=== PATIENT | female | born 1955 | race African-American/Black ===

== ENCOUNTER 2016-12-26 13:49 | Inpatient (IN) | payer OTHER ==
[~2016-12-26] VITALS: Ht 160 cm; Wt 64.0 kg
[~2016-12-26 13:49] MED LIST: AMBIEN5 MG PO; ASPIR-LOW81 MG PO; CELEXA20 MG PO; CELEXA40 MG PO; CRESTOR20 MG PO; CRESTOR40 MG PO; CRESTOR5 MG PO; DAILY VALUE1 EACH PO; DESYREL100 MG PO; DIOVAN320 MG PO; FLEXERIL10 MG PO; FLORASTOR250 MG PO; FUROSEMIDE20 MG PO; HYDROCHLOROTHIA25 MG PO; HYDROCODON-ACE1 EAC7 PO; JANUMET 50/11 TABLET PO; LASIX20 MG PO; LEVO-T112 MCG PO; LEXAPRO10 MG PO; LOPRESSOR100 M1 PO; LOPRESSOR25 MG PO; LOSARTAN-HCTZ1 EAC1 PO; METOPROLOL SUCC50 MG PO; MOTRIN600 MG PO; NAPROSYN500 MG PO; NORVASC10 MG PO; ONE-A-DAY ESSE1 EAC1 PO; PERCOCET 5/31 TABLET PO; PROZAC10 MG PO; SYNTHROID100 MCG PO; SYNTHROID88 MCG PO; TRAMADOL HCL50 MG PO; TRAZODONE HCL50 MG PO; TYLENOL EXTRA500 MG PO; ULTRAM50 MG PO; VANCOCIN 250 M250 MG PO; VITAMIN B-12 PO; VITAMIN B122500 MCG PO; VITRON-C TABLE1 EACH PO
[2016-12-26 15:01] LABS: HEMATOCRIT 33.6 % (36.0-46.0); MCH 24.8 PG (29.0-34.0); MCHC 30.1 G/DL (30.0-36.0); MCV 82.4 FL (83-99); MEAN PLAT.VOLUME 9.6 uM^3 (9.5-12.4); PLATELET COUNT 203 K/uL (156-360); RBC DIS.WIDTH-CV 17.6 % (11.8-14.6); RBC DIS.WIDTH-SD 53.1 % (39-53); RED BLOOD COUNT 4.08 M/uL (3.80-5.20); WHITE BLOOD COUNT 5.6 K/uL (4.1-10.2)
[2016-12-26 15:11] LABS: CHLORIDE 105 mEq/L (99-109); POTASSIUM 4.7 mEq/L (3.7-5.4); SODIUM 136 mEq/L (136-147)
[2016-12-26 15:13] LABS: GLUCOSE 93 mg/dL (70-99)
[2016-12-26 15:14] LABS: ANION GAP 4 MEQ/L (2-14)
[2016-12-26 15:17] LABS: GFR ESTIMATE (CALCULATED) > 59 mL/min/
[2016-12-26 15:18] LABS: UREA NITROGEN (BUN) 15 mg/dL (9-23)
[2016-12-26 15:25] LABS: TROP-I INTERPRETATION NEGATIVE; TROPONIN-I 0.02 ng/mL (0.0-0.30)
[2016-12-26 16:58] LABS: TOTAL BILIRUBIN 0.5 mg/dL (0.0-1.0)
[2016-12-26 16:59] LABS: ALKALINE PHOSPHATASE 90 IU/L (3-129)
[2016-12-26 17:01] LABS: DIRECT BILIRUBIN 0.2 mg/dL (0.0-0.3)
[2016-12-26 17:02] LABS: LIPASE 39 U/L (1.0-51.0)
[2016-12-26 17:27] LABS: ADD MIUA? YES; BILIRUBIN NEGATIVE; BLOOD NEGATIVE; COLOR YELLOW ((YELLOW)); GLUCOSE (STRIP) NEGATIVE; KETONES NEGATIVE; LEUKOCYTES TRACE; NITRITE NEGATIVE; PROTEIN (STRIP) 100; SPECIFIC GRAVITY 1.011 (1.000-1.030); UROBILINOGEN 0.2 MG/DL (0.2-1.0)
[2016-12-26 17:40] LABS: BACTERIA RARE /HPF; EPITHELIAL CELLS RARE /HPF; MUCUS NONE SEEN /LPF; RED BLOOD CELLS 0-5 /HPF (0-5); WHITE BLOOD CELLS 0-5 /HPF (0-5)
[2016-12-26] MEDS ORDERED: METOPROLOL TART50 MG PO (17:44)
[2016-12-26] MEDS ORDERED: METOPROLOL TART25 MG PO (17:44)
[2016-12-26] MEDS ORDERED: LO-DOSE ASPIRIN81 M2 PO (17:45)
[2016-12-26] MEDS ORDERED: MAXITROL EYE O3.5 GM BOTH EYES (17:47)
[2016-12-26] MEDS ORDERED: HYDROXYCHLOROQ200 MG PO (17:47)
[2016-12-26] MEDS ORDERED: DAILY VALUE1 EACH PO (17:48)
[2016-12-26] MEDS ORDERED: GLIMEPIRIDE2 MG PO (17:48)
[2016-12-26] MEDS ORDERED: ARTIFICIAL TEAR15 M1 BOTH EYES (17:48)
[2016-12-26 18:38] VITALS: BP 139/95
[2016-12-26 21:39] LABS: POINT-OF-CARE METER ID UU14188625
[2016-12-26 21:50] LABS: TROP-I INTERPRETATION NEGATIVE; TROPONIN-I < 0.01 ng/mL (0.0-0.30)
[2016-12-26 23:26] VITALS: BP 135/84
[2016-12-27 02:49] LABS: HEMATOCRIT 34.4 % (36.0-46.0); MCH 24.9 PG (29.0-34.0); MCHC 30.8 G/DL (30.0-36.0); MCV 80.9 FL (83-99); MEAN PLAT.VOLUME 9.9 uM^3 (9.5-12.4); PLATELET COUNT 213 K/uL (156-360); RBC DIS.WIDTH-SD 52.9 % (39-53); RED BLOOD COUNT 4.25 M/uL (3.80-5.20); WHITE BLOOD COUNT 5.9 K/uL (4.1-10.2)
[2016-12-27 02:59] LABS: CHLORIDE 101 mEq/L (99-109); SODIUM 137 mEq/L (136-147)
[2016-12-27 03:01] LABS: GLUCOSE 129 mg/dL (70-99)
[2016-12-27 03:02] LABS: ANION GAP 10 MEQ/L (2-14)
[2016-12-27 03:05] LABS: GFR ESTIMATE (CALCULATED) 59 mL/min/
[2016-12-27 03:06] LABS: UREA NITROGEN (BUN) 21 mg/dL (9-23)
[2016-12-27 03:12] LABS: TROP-I INTERPRETATION NEGATIVE; TROPONIN-I < 0.01 ng/mL (0.0-0.30)
[2016-12-27 03:13] VITALS: BP 145/91
[2016-12-27 07:56] VITALS: BP 153/103
[2016-12-27 11:44] VITALS: BP 132/91
[2016-12-27 15:36] VITALS: BP 131/79
[2016-12-27 19:59] VITALS: BP 141/95
[2016-12-27 21:48] LABS: POINT-OF-CARE METER ID UU14188625
[2016-12-28 00:05] VITALS: BP 130/79
[2016-12-28 04:00] VITALS: BP 133/78
[2016-12-28 07:20] LABS: HEMATOCRIT 36.6 % (36.0-46.0); MCH 24.4 PG (29.0-34.0); MCHC 30.3 G/DL (30.0-36.0); MCV 80.6 FL (83-99); PLATELET COUNT 231 K/uL (156-360); RBC DIS.WIDTH-CV 18.2 % (11.8-14.6); RBC DIS.WIDTH-SD 53.1 % (39-53); RED BLOOD COUNT 4.54 M/uL (3.80-5.20); WHITE BLOOD COUNT 6.9 K/uL (4.1-10.2)
[2016-12-28 07:27] VITALS: BP 195/79
[2016-12-28 07:45] LABS: ANION GAP 8 MEQ/L (2-14); CHLORIDE 100 MEQ/L (99-109); GFR ESTIMATE (CALCULATED) > 59 mL/min/; GLUCOSE 139 mg/dL (70-99); POTASSIUM 4.3 MEQ/L (3.7-5.4); SAMPLE HEMOLYSIS CHECK 0; SAMPLE ICTERIC CHECK 0; SAMPLE LIPEMIA CHECK 0; SODIUM 137 MEQ/L (136-147); UREA NITROGEN (BUN) 23 mg/dL (9-23)
[2016-12-28] MEDS ORDERED: AMOX TR-K CLV1 EAC4 PO (09:27)
[2016-12-28] MEDS ORDERED: SPIRONOLACTONE25 MG PO (09:27)
[2016-12-28] MEDS ORDERED: LOPRESSOR50 MG PO (09:27)
[2016-12-28] MEDS ORDERED: FUROSEMIDE20 MG PO (09:27)
[2016-12-28 09:56] VITALS: BP 133/87
== END 2016-12-28 11:20 | disposition home or self-care (01) | DRG 293 ==
LOC: EME 13:49 → EDOF 16:59 → 5SOUTH 18:28
PROVIDERS: Hospitalist; Physician Assistant; Student in an Organized Health Care Education/Training Program
DX: I11.0 Hypertensive heart disease with heart failure (principal); I42.9 Cardiomyopathy, unspecified; E03.9 Hypothyroidism, unspecified; E11.9 Type 2 diabetes mellitus without complications; K80.20 Calculus of gallbladder without cholecystitis without obstruction; I50.33 Acute on chronic diastolic (congestive) heart failure; K82.8 Other specified diseases of gallbladder; E78.5 Hyperlipidemia, unspecified; I25.10 Atherosclerotic heart disease of native coronary artery without angina pectoris; D64.9 Anemia, unspecified
CPT/HCPCS: 71020; 74176; 76705; 80048; 80076; 81003; 82948; 83690; 84484; 85027; 93005; 99281; 99285; G0378; J1815; J1940

== ENCOUNTER 2017-01-18 17:41 | Emergency (ER) | payer OTHER ==
[~2017-01-18] VITALS: Ht 160 cm; Wt 65.2 kg
[~2017-01-18 17:41] MED LIST changes: +AMOX TR-K CLV1 EAC4 PO; +ARTIFICIAL TEAR15 M1 BOTH EYES; +GLIMEPIRIDE2 MG PO; +HYDROXYCHLOROQ200 MG PO; +LO-DOSE ASPIRIN81 M2 PO; +LOPRESSOR50 MG PO; +MAXITROL EYE O3.5 GM BOTH EYES; +METOPROLOL TART25 MG PO; +METOPROLOL TART50 MG PO; +SPIRONOLACTONE25 MG PO
[2017-01-18 17:57] LABS: POINT-OF-CARE METER ID UU13113778
[2017-01-18] MEDS ORDERED: TRAMADOL HCL50 MG PO (18:07)
[2017-01-18 18:54] LABS: MCH 24.9 PG (29.0-34.0); MCHC 30.6 G/DL (30.0-36.0); MCV 81.3 FL (83-99); RBC DIS.WIDTH-CV 17.7 % (11.8-14.6); RBC DIS.WIDTH-SD 52.1 % (39-53); RED BLOOD COUNT 4.18 M/uL (3.80-5.20); WHITE BLOOD COUNT 5.6 K/uL (4.1-10.2)
[2017-01-18 19:04] LABS: CHLORIDE 100 mEq/L (99-109); POTASSIUM 4.8 mEq/L (3.7-5.4); SODIUM 132 mEq/L (136-147)
[2017-01-18 19:05] LABS: ADD MIUA? YES; BILIRUBIN NEGATIVE; BLOOD NEGATIVE; COLOR YELLOW ((YELLOW)); GLUCOSE (STRIP) NEGATIVE; KETONES NEGATIVE; LEUKOCYTES LARGE; NITRITE NEGATIVE; PROTEIN (STRIP) NEGATIVE; SPECIFIC GRAVITY 1.016 (1.000-1.030); UROBILINOGEN 0.2 MG/DL (0.2-1.0)
[2017-01-18 19:06] LABS: GLUCOSE 119 mg/dL (70-99)
[2017-01-18 19:07] LABS: ANION GAP 4 MEQ/L (2-14)
[2017-01-18 19:08] LABS: TOTAL BILIRUBIN 0.2 mg/dL (0.0-1.0)
[2017-01-18 19:10] LABS: ALKALINE PHOSPHATASE 61 IU/L (3-129); GFR ESTIMATE (CALCULATED) 59 mL/min/
[2017-01-18 19:11] LABS: TROP-I INTERPRETATION NEGATIVE; TROPONIN-I < 0.01 ng/mL (0.0-0.30); UREA NITROGEN (BUN) 30 mg/dL (9-23)
[2017-01-18 19:13] LABS: BACTERIA RARE /HPF; EPITHELIAL CELLS 1+ /HPF; MUCUS TRACE /LPF; RED BLOOD CELLS 0-5 /HPF (0-5); WHITE BLOOD CELLS 40-50 /HPF (0-5)
[2017-01-18 19:48] LABS: PLAT.SUFFICIENCY DECREASED; PLATELET CLUMPS PRESENT - PLATELET COUNTS APPEARS DECREASED; PLATELET COUNT UNABLE TO REPORT K/uL (156-360)
[2017-01-18] MEDS ORDERED: PYRIDIUM100 MG PO (20:04)
[2017-01-18] MEDS ORDERED: MACROBID100 MG PO (20:04)
[2017-01-18 20:54] VITALS: BP 103/72
== END 2017-01-18 20:56 | disposition home or self-care (01) ==
LOC: RME 17:41 → EME 17:41 → RME 20:56
PROVIDERS: Nurse Practitioner Family
DX: N39.0 Urinary tract infection, site not specified (principal); E11.649 Type 2 diabetes mellitus with hypoglycemia without coma; Z79.84 Long term (current) use of oral hypoglycemic drugs; R63.5 Abnormal weight gain; Z68.25 Body mass index [BMI] 25.0-25.9, adult; I10 Essential (primary) hypertension; E78.5 Hyperlipidemia, unspecified; Z79.82 Long term (current) use of aspirin
CPT/HCPCS: 80053; 81003; 82948; 83880; 84484; 85027; 93005; 99281; 99284

== ENCOUNTER 2017-10-25 07:59 | Observation (INO) | payer OTHER ==
[~2017-10-25] VITALS: Ht 162.6 cm; Wt 82.0 kg
[~2017-10-25 07:59] MED LIST changes: +ATORVASTATIN CA40 MG PO; -CRESTOR20 MG PO; +MACROBID100 MG PO; +PYRIDIUM100 MG PO
[2017-10-25 08:44] LABS: BASOPHIL (%) 0.2 % (0-1); EOSINOPHIL (%) 0.5 % (0-5); HEMATOCRIT 36.6 % (36.0-46.0); HEMOGLOBIN 11.8 G/DL (11.9-15.5); IMMATURE GRANULOCYTE (%) 0.3 % (0.0-0.7); LYMPHOCYTE (%) 23.7 % (15-42); LYMPHOCYTE COUNT 1.4 K/uL (1.0-2.8); MCH 29.3 PG (29.0-34.0); MCHC 32.2 G/DL (30.0-36.0); MCV 90.8 FL (83-99); MONOCYTE (%) 8.3 % (3-12); MONOCYTE COUNT 0.5 K/uL (0-0.8); PLATELET COUNT 159 K/uL (156-360); RBC DIS.WIDTH-CV 13.4 % (11.8-14.6); RBC DIS.WIDTH-SD 45.1 % (39-53); RED BLOOD COUNT 4.03 M/uL (3.80-5.20); WHITE BLOOD COUNT 5.9 K/uL (4.1-10.2)
[2017-10-25 08:54] LABS: CHLORIDE 99 mEq/L (99-109); SODIUM 132 mEq/L (136-147)
[2017-10-25 08:56] LABS: GLUCOSE 181 mg/dL (70-99)
[2017-10-25 09:00] LABS: CREATININE 1.3 mg/dL (0.6-1.3); GFR ESTIMATE (CALCULATED) 53 mL/min/
[2017-10-25 09:01] LABS: UREA NITROGEN (BUN) 18 mg/dL (9-23)
[2017-10-25 09:05] LABS: TROP-I INTERPRETATION NEGATIVE; TROPONIN-I < 0.01 ng/mL (0.0-0.30)
[2017-10-25] MEDS ORDERED: LASIX20 MG PO (11:54)
[2017-10-25] MEDS ORDERED: CARVEDILOL6.25 MG PO (11:56)
[2017-10-25] MEDS ORDERED: KLOR-CON M1010 MEQ PO (11:56)
[2017-10-25] MEDS ORDERED: ENTRESTO 49 MG1 EACH PO ×2 (11:57)
[2017-10-25] MEDS ORDERED: METFORMIN HCL500 M1 PO (11:58)
[2017-10-25] MEDS ORDERED: HYDROXYCHLOROQ200 MG PO (12:00)
[2017-10-25 13:51] VITALS: BP 119/71
[2017-10-25 15:04] LABS: TROP-I INTERPRETATION NEGATIVE; TROPONIN-I < 0.01 ng/mL (0.0-0.30)
[2017-10-25 16:28] VITALS: BP 128/80
[2017-10-25 20:25] VITALS: BP 138/81
[2017-10-25 20:25] LABS: TROP-I INTERPRETATION NEGATIVE; TROPONIN-I < 0.01 ng/mL (0.0-0.30)
[2017-10-25 23:04] VITALS: BP 136/89
[2017-10-26 04:43] VITALS: BP 122/67
[2017-10-26 06:51] LABS: CHLORIDE 103 MEQ/L (99-109); GFR ESTIMATE (CALCULATED) > 59 mL/min/; GLUCOSE 121 mg/dL (70-99); POTASSIUM 3.9 MEQ/L (3.7-5.4); SODIUM 137 MEQ/L (136-147); UREA NITROGEN (BUN) 13 mg/dL (9-23)
[2017-10-26 06:52] LABS: CREATININE 0.8 MG/DL (0.6-1.3)
[2017-10-26 07:57] VITALS: BP 140/92
[2017-10-26 11:10] VITALS: BP 109/72
== END 2017-10-26 12:40 | disposition home or self-care (01) ==
LOC: EME 07:59 → 5WEST 10:01 → EDOF 10:01 → ENRESERV 10:02 → 5WEST 13:34
PROVIDERS: Emergency Medicine; Internal Medicine
DX: R55 Syncope and collapse (principal); S00.81XA Abrasion of other part of head, initial encounter; W22.8XXA Striking against or struck by other objects, initial encounter; I11.0 Hypertensive heart disease with heart failure; I50.32 Chronic diastolic (congestive) heart failure; I25.10 Atherosclerotic heart disease of native coronary artery without angina pectoris; E11.9 Type 2 diabetes mellitus without complications; E78.5 Hyperlipidemia, unspecified; Z79.4 Long term (current) use of insulin; E03.9 Hypothyroidism, unspecified; Z86.19 Personal history of other infectious and parasitic diseases; Z79.82 Long term (current) use of aspirin; Z83.3 Family history of diabetes mellitus; Z82.49 Family history of ischemic heart disease and other diseases of the circulatory system; Z82.3 Family history of stroke; Z88.8 Allergy status to other drugs, medicaments and biological substances; Z88.5 Allergy status to narcotic agent
CPT/HCPCS: 70450; 71045; 80048; 82948; 84484; 85025; 93005; 93306; 93880; 94640; 99202; 99281; 99285; G0378; J7030